=== PATIENT | male | born 2000 | race Hispanic/Latino ===

== ENCOUNTER 2019-05-13 02:29 | Emergency (ER) | payer SELFPAY ==
[2019-05-13] MEDS ORDERED: Ibuprofen 800 MG TAB ONE (04:51)
== END 2019-05-13 06:05 | disposition home or self-care (01) ==
LOC: ERS 02:29
DX: S02.2XXB Fracture of nasal bones, initial encounter for open fracture (principal); S01.21XA Laceration without foreign body of nose, initial encounter; S01.111A Laceration without foreign body of right eyelid and periocular area, initial encounter; Y00.XXXA Assault by blunt object, initial encounter

== ENCOUNTER 2019-05-18 14:04 | Emergency (ER) | payer SELFPAY | END 2019-05-18 14:52 | disposition home or self-care (01) | LOC: ERS 14:04 | DX: S01.81XD Laceration without foreign body of other part of head, subsequent encounter (principal) ==